=== PATIENT | female | born 1950 | race Caucasian/White ===

== ENCOUNTER 2017-02-16 08:28 | Day surgery (SDC) | payer OTHER ==
[2017-02-16] VITALS (12 sets, daily range): BP systolic 107–134; BP diastolic 54–61; PULSE 72–77; RESP 11–19; Ht 157.5 cm; Wt 81.5 kg
[~2017-02-16] VITALS: Ht 157.5 cm; Wt 81.5 kg
[~2017-02-16 08:28] MED LIST: ASPI-664 PO; CYCLOPENTOLATE 2% 2 ML OPH OPER SCH; DICLOFENAC 0.1% 2.5 ML OPH OPER SCH; GLIP5TAB13 PO; LACTATED RINGER'S 1,000 ML IV SCH; LEVO75TA5 PO; LIDOCAINE 3.5% GEL TUBE OPER SCH; LISI2.5T59 PO; METF1000 PO; MOXIFLOXACIN 0.5% 3 ML OPH OPER SCH; PHENYLephrine 10% 5 ML OPH OPER SCH; PRAV40TA76 PO; SITA100T8 PO; TETRACAINE 0.5% 4 ML OPH OPER SCH; TROPICAMIDE 1% 3ML OPH OPER SCH
--- NOTE | 2017-02-16 08:49 | HPN ---
Date/Time of Note Date/Time of Note DATE: 02/16/17 TIME: 08:49 Interval H&P Admission Note Pt. seen H&P reviewed: No system changes ARTURO NIEVES D.O. Feb 16, 2017 08:49
[2017-02-16] MEDS ORDERED: NA HYALURONATE/CHONDROITIN 0.5 ML SYG LEFT EYE ONE (08:59)
[2017-02-16] MEDS ORDERED: LIDOCAINE 2%/EPI MPF (SDV) 20 ML VIAL INJ ONE (08:59)
[2017-02-16] MEDS ORDERED: HYALURONATE/CHONDROITIN 1ML OPH INJ IO ONE (08:59)
[2017-02-16] MEDS ORDERED: TOBRAMYCIN 0.3% 3.5 GM OPH OINT ONE (09:13)
[2017-02-16] MEDS ORDERED: TRYPAN BLUE 0.5 ML SYG IO ONE (09:13)
[2017-02-16] MEDS ORDERED: NA HYALURONATE/CHONDROITIN 0.5 ML SYG ONE (09:15)
[2017-02-16] MEDS ORDERED: EPINEPHrine 1 MG INJ ONE (09:15)
[2017-02-16] MEDS ORDERED: PROPOFOL 20 ML ONE (09:47)
[2017-02-16] MEDS ORDERED: FENTAnyl 50 MCG/ML VIAL ONE (09:47)
[2017-02-16] MEDS ORDERED: MIDAZOLAM 1 MG/ML 2 ML INJ ONE (09:47)
[2017-02-16] MEDS ORDERED: CEFAZOLIN 1 GM INJ ONE (10:04)
[2017-02-16] MEDS ORDERED: TOBRAMYCIN 0.3% 3.5 GM OPH OINT LEFT EYE ONE (10:14)
[2017-02-16] MEDS ORDERED: CARBACHOL 0.01% 1.5 ML OPH INJ IO ONE (10:28)
[2017-02-16] MEDS ORDERED: DIPHENHYDRAMINE 50 MG INJ IV PRN (10:30)
[2017-02-16] MEDS ORDERED: PROCHLORPERAZINE 10 MG INJ IV PRN (10:30)
[2017-02-16] MEDS ORDERED: ONDANSETRON 4 MG INJ IV PRN (10:30)
[2017-02-16] MEDS ORDERED: hydrALAzine 20 MG INJ IV PRN (10:30)
[2017-02-16] MEDS ORDERED: HYDROmorphONE (0.2 MG/ML) 10ML SYG IV PRN (10:30)
[2017-02-16] MEDS ORDERED: LABETALOL HCL 20MG INJ IV PRN (10:30)
[2017-02-16] MEDS ORDERED: OXYCODONE/ACETAMINOPHEN (5/325) TAB PO PRN (10:30)
[2017-02-16] MEDS ORDERED: FENTAnyl 50 MCG/ML VIAL IV PRN (10:30)
--- NOTE | 2017-02-16 11:03 | SIPON ---
Date/Time of Note Date/Time of Note DATE: 02/16/17 TIME: 11:00 Operative Report Preoperative Diagnosis Senile cataract, Left eye Postoperative Diagnosis Senile cataract, Left eye Operation/Procedure Performed Cataract extraction via phacoemulsification and intraocular lens implantation, Left eye Surgeon: ARTURO NIEVES D.O. Anesthesia Type: MAC Estimated Blood Loss: none Transfusion Required: no Grafts/Implants Alec [id number] D Complications: no ARTURO NIEVES D.O. Feb 16, 2017 11:03
--- NOTE | 2017-02-17 05:56 | OPR ---
DATE OF OPERATION: 02/16/2017 SURGEON: Dr. Melinda Vines. ANESTHESIOLOGIST: Dr. Scott. PREOPERATIVE DIAGNOSIS: Senile cataract, left eye. POSTOPERATIVE DIAGNOSIS: Senile cataract, left eye. OPERATION PLANNED: Cataract extraction with intraocular lens implantation, left eye. OPERATION PERFORMED: Cataract extraction with intraocular lens implantation, left eye. ANESTHESIA: MAC. CONSENT: Patient aware of possibility of complications, such as bleeding, infection, retinal detachment, loss of nucleus, loss of fragments of nucleus, dislocation of lens, loss of lens, loss of vision, loss of eye as an organ. Patient aware of possibility of multiple complications, but patient decided to have surgery done and signed the consent, which can be found in her chart. OPERATIVE PROCEDURE: Patient brought to the operating room in stable condition, placed on the operating table in supine position and her left eye was prepped for cataract surgery in routine sterile technique. Retractor was placed to hold her eyelids and a clear corneal limbal incision was done with a keratome, which was followed by injection of lidocaine with epinephrine, preservative free and Viscoat agent. Air buble was injected, which was followed by injection of Trypan Blue dye. It was followed by irrigation/aspiration with balanced salt solution. Then cystotome and Utrata forceps used to perform anterior capsulorrhexis, which was followed by hydrodissection and hydrodelineation, nucleus moved freely. Then a Nagahara chopper and phaco instruments were inserted and nucleus was divided into multiple pieces, which each of them were emulsified successfully. Cortex was removed as well. Then additional Viscoat agent was injected and an Alec SN6AT 19.5 diopter intraocular lens was implanted in the sulcus. Lens was stable, centered. Then additional Viscoat material was removed and an uninterrupted 8-0 nylon suture was placed on the wound and tobradex ointment was instilled into conjunctival sac. The eyelid was closed and patch was placed on closed eyelids. Patient transferred to recovery room in stable condition. Dictated By: Melinda Vines DO /yang/brenda /Document#: [id number] LINNETTE
== END 2017-02-16 12:30 | disposition home or self-care (01) ==
LOC: SDS 08:28
PROVIDERS: ATTEND Ophthalmology
DX: H25.12 Age-related nuclear cataract, left eye (principal); E03.9 Hypothyroidism, unspecified; I10 Essential (primary) hypertension; E78.5 Hyperlipidemia, unspecified; E11.9 Type 2 diabetes mellitus without complications
CPT/HCPCS: 66984; 82962; J0171; J0690; J2250; J3010; J7120; V2632; Z7512; Z7610

== ENCOUNTER 2018-09-16 08:16 | Inpatient (IN) | payer OTHER ==
--- NOTE | 2018-09-11 00:39 | PREOPHP ---
DATE OF ADMISSION: 09/16/2018 The patient is coming on Sunday, September 16, 2018, for a surgical procedure. HISTORY OF PRESENT ILLNESS: This is a 68-year-old female, 10, para 10, abortions 1 with a se t of twins. The patient had her last period in 1996. She is referred to me by her primary doctor fo r vaginal reconstruction due to that. The patient has difficulties with her bladder, keeping her alma dder inside herself since it comes out of her as a mass. She feels her bladder is outside, and she i s unable to void sometimes to the point that she will need to put her finger inside the vagina to pus h the urine out. Also, with intermittent incontinence. She is also having constipation difficulties and she has been referred to me for a reconstruction. She had a history of a hysterectomy abdominal ly, diabetes, hypertension, hypercholesterolemia, thyroid disease and a mini lap tubal ligation. REVIEW OF SYSTEMS: Negative for cardiovascular except for hypertension. Negative for lung disease. Negative for neurological, urological disease except for the incontinence and urinary retention. She has no other symptoms, problems. She had a history of low thyroid and varicose veins. SOCIAL HISTORY: She has no history of drugs or alcohol. She smokes 1 or 2 cigarettes per week and s he drinks 1 or 2 glasses of alcohol a month. MEDICATIONS: The patient is on: 1. Lisinopril 2. Metformin. 3. Glipizide. 4. Atorvastatin. 5. Aspirin. 6. Levothyroxine. She has been seen by her primary doctor that had given the green light for the surgery. FAMILY HISTORY: Hypertension, diabetes, multiple births. No history of clots or drug addiction. PHYSICAL EXAMINATION: VITAL SIGNS: The blood pressure is 136/70, pulse is 80, respirations 16. She is afebrile. She weig hs 177 and she is 5 feet 4 inches. HEAD AND NECK: Normal. BREASTS: Soft, nontender, no masses. CHEST: Clear. HEART: Normal sinus rhythm. LUNGS: Clear. BACK: Normal. ABDOMEN: Soft, nontender, no masses. GENITALIA: With a cystourethrocele grade IV, and rectocele grade III with an absent uterus from surg jonathan and no adnexal mass palpated. RECTAL: Noncontributory except for the rectocele. EXTREMITIES: Noncontributory except for the rectocele. She was offered an anterior and posterior repair with a sling and a graft. The patient was given the option of no sling versus sling. She was given all the written information and the possibilities of risks and possible complications and benefits and she had decided to take the sling. The patient christensen d been using pessaries that had been giving her a hard time. She is done with that and she would lik e to have a permanent solution. She was placed on estrogen daily suppositories for preparation for s urgery. She agreed for an anterior, posterior repair, a sling and a graft. She has been conscious a bout what I explained to her because of written information was given and she understood everything a nd agreed to have the procedure done with a sling. The patient understands that because she is diabe tic and hypertensive, she could have complications. She was alerted by her primary physician as well and he has given the green light for the procedure and she will have the procedure on the day of her admission with no more questions and she agreed to go ahead with the procedure with full information . Her questions answered, with no more questions and agreed to go ahead with it. Dictated By: HAN LIGHT/BRIANNE Conf#: [id number] DID#: [id number]
[2018-09-14 18:53] VITALS: Ht 162.6 cm; Wt 78.0 kg
[~2018-09-16] VITALS: Ht 162.6 cm; Wt 78.0 kg
[2018-09-16] VITALS (16 sets, daily range): BP systolic 83–119; BP diastolic 39–71; PULSE 63–79; RESP 10–18
[~2018-09-16 08:16] MED LIST changes: -ASPI-664 PO; +ASPI-817 PO; +CEFAZOLIN 1 GM INJ ONE; -CYCLOPENTOLATE 2% 2 ML OPH OPER SCH; -DICLOFENAC 0.1% 2.5 ML OPH OPER SCH; -LACTATED RINGER'S 1,000 ML IV SCH; -LIDOCAINE 3.5% GEL TUBE OPER SCH; -METF1000 PO; +METF100010 PO; +METOCLOPRAMIDE 10 MG INJ ONE; -MOXIFLOXACIN 0.5% 3 ML OPH OPER SCH; -PHENYLephrine 10% 5 ML OPH OPER SCH; +SEVOFLURANE 15 MIN ONE; +SITA100T11 PO; -SITA100T8 PO; -TETRACAINE 0.5% 4 ML OPH OPER SCH; -TROPICAMIDE 1% 3ML OPH OPER SCH
[2018-09-16] MEDS ORDERED: morphine SULFATE/PF (10 MG/10 ML) INJ ONE (09:58)
[2018-09-16] MEDS ORDERED: FENTAnyl 50 MCG/ML VIAL ONE (09:59)
[2018-09-16] MEDS ORDERED: MIDAZOLAM 1 MG/ML 2 ML INJ ONE (09:59)
[2018-09-16] MEDS ORDERED: ONDANSETRON 4 MG INJ ONE (10:02)
[2018-09-16] MEDS ORDERED: PROPOFOL 20 ML ONE (10:05)
[2018-09-16] MEDS ORDERED: LIDOCAINE 2% (SDV) 5 ML INJ ONE (10:06)
[2018-09-16] MEDS ORDERED: ROCURONIUM 50 MG INJ ONE (10:06)
[2018-09-16] MEDS ORDERED: SUCCINYLCHOLINE CHLORIDE 100 MG/5 ML SYG IV ONE (10:06)
--- NOTE | 2018-09-16 10:20 | PREAC ---
Date/Time of Note Date/Time of Note DATE: 09/16/18 TIME: 10:17 Anesthesia Eval and Record Evaluation Time Pre-Procedure Interview DATE: 09/16/18 TIME: 10:17 Age 68 Sex female NPO: 8 hrs Preoperative diagnosis urinary incontinence Planned procedure anterior posterior sling procedure Past Medical History Past Medical History: Includes Cardio: HTN, Dyslipidemia Endo: Diabetes, Hypothyroid Surgery & Anesthesia Issues No known issue Meds Anticoagulation: No Beta Jeffery within 24 hr: No Reason Beta Jeffery not given: Pt. not on B-Jeffery Reported Medications Aspirin* (Aspirin* EC) 81 Mg Tablet.dr, 81 MG PO DAILY, #90 04/13/16 Sitagliptin* (Januvia*) 100 Mg Tablet, 100 MG PO DAILY, #90 04/13/16 Metformin Hcl* (Metformin Hcl*) 1,000 Mg Tablet, 1000 MG PO DAILY, #180 04/13/16 Pravastatin Sodium* (Pravastatin Sodium*) 40 Mg Tablet, 40 MG PO DAILY, #90 04/13/16 Lisinopril* (Lisinopril*) 2.5 Mg Tablet, 2.5 MG PO DAILY, #90 04/13/16 Levothyroxine Sodium* (Levothyroxine Sodium*) 75 Mcg Tablet, 75 MCG PO DAILY, #30 04/13/16 Glipizide* (Glipizide*) 5 Mg Tablet, 5 MG PO BID, #180 04/13/16 Meds reviewed: Yes Allergies Coded Allergies: No Known Allergy (Unverified , 04/14/16) Allergies Reviewed: Yes Labs/Studies Labs Reviewed: Reviewed by anesthesiologist test: Negative Studies: ECG, CXR Pre-procedure Exam Airway: Adequate mouth opening, Adequate thyromental dist Mallampati: Mallampati III Teeth: Abnormal (dentures removed) Lung: Normal Heart: Normal ASA Physical Status ASA physical status: 3 Emergency: None Planned Anesthetic General/MAC: ETT Planned Pain Management Sub-arachniod narcotics, Parenteral pain med, Other neuraxial med Pre-operative Attestations Prior to commencing anesthesia and surgery, the patient was re-evaluated, there was verification of: *The patient's identity *The results of appropriate recent lab work and preoperative vital signs *The above evaluation not changing prior to induction *Anesthetic plan, risk benefits, alternative and complications discussed with patient/family; questions answered; patient/family understands, accepts and wishes to proceed. PRETTY PENNINGTON MD Sep 16, 2018 10:20
[2018-09-16] MEDS ORDERED: BUPIVACAINE 0.5%/EPI (SDV) 30 ML INJ ONE (10:27)
[2018-09-16] MEDS ORDERED: POLYMYXIN/BACITRACIN 1L IRRIG ONE (10:27)
[2018-09-16] MEDS ORDERED: THROMBIN (BOVINE) 5,000 UNIT VIAL TP ONE (10:27)
[2018-09-16] MEDS ORDERED: IPRATROPIUM (NEB) 0.5 MG/2.5 ML AMP HHN PRN (10:30)
[2018-09-16] MEDS ORDERED: KETOROLAC 30 MG INJ IV PRN (10:30)
[2018-09-16] MEDS ORDERED: hydrALAzine 20 MG INJ IV PRN (10:30)
[2018-09-16] MEDS ORDERED: MIDAZOLAM 1 MG/ML 2 ML INJ IV PRN (10:30)
[2018-09-16] MEDS ORDERED: ONDANSETRON 4 MG INJ IV PRN (10:30)
[2018-09-16] MEDS ORDERED: DIPHENHYDRAMINE 50 MG INJ IV PRN (10:30)
[2018-09-16] MEDS ORDERED: LABETALOL HCL 20MG INJ IV PRN (10:30)
[2018-09-16] MEDS ORDERED: LORAZEPAM 2 MG INJ IV PRN (10:30)
[2018-09-16] MEDS ORDERED: LEVALBUTEROL (NEB) 1.25 MG/0.5 ML AMP HHN PRN (10:30)
[2018-09-16] MEDS ORDERED: FENTAnyl 50 MCG/ML VIAL IV PRN ×2 (10:30)
[2018-09-16] MEDS ORDERED: MEPERIDINE 25 MG INJ IV PRN (10:30)
[2018-09-16] MEDS ORDERED: HYDROmorphONE 1 MG/5 ML IV SYRINGE IV PRN ×2 (10:30)
--- NOTE | 2018-09-16 10:51 | HPN ---
Date/Time of Note Date/Time of Note DATE: 09/16/18 TIME: 10:51 Interval H&P Admission Note Pt. seen H&P reviewed: No system changes HAN CAR MD Sep 16, 2018 10:51
[2018-09-16] MEDS ORDERED: POLYMYXIN/BACITRACIN 1L IRRIG IRR ONE (12:26)
[2018-09-16] MEDS ORDERED: ZOLPIDEM 5 MG TAB PO PRN (13:00)
[2018-09-16] MEDS ORDERED: DIPHENHYDRAMINE 50 MG CAP PO PRN (13:00)
[2018-09-16] MEDS ORDERED: ONDANSETRON INJ 6 MG in DEXTROSE 5% 50 ML IVPB PRN (13:00)
[2018-09-16] MEDS ORDERED: HYDROCODONE/APAP (5/325) TAB PO PRN ×2 (13:00)
--- NOTE | 2018-09-16 13:19 | PAC ---
Date/Time of Note Date/Time of Note DATE: 09/16/18 TIME: 13:19 Post-Anesthesia Notes Post-Anesthesia Note Last documented vital signs Vital Signs Date Temp Pulse Resp B/P (MAP) Pulse Ox O2 O2 Flow FiO2 Time Delivery Rate 09/16/18 98.1 13:08 09/16/18 63 18 107/50 98 Room Air 08:43 (69) Activity: WNL Respiratory function: WNL Cardiovascular function: WNL Mental status: Baseline Pain reasonably controlled: Yes Hydration appropriate: Yes Nausea/Vomiting absent: Yes PRETTY PENNINGTON MD Sep 16, 2018 13:19
--- NOTE | 2018-09-16 13:52 | SIPON ---
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
[2018-09-16] MEDS ORDERED: CEFAZOLIN 1 GM/50 ML (PMX) 50 ML IVPB SCH (14:00)
[2018-09-16] MEDS ORDERED: DEXTROSE 50% 50 ML SYRINGE IV PRN ×2 (14:30)
[2018-09-16] MEDS ORDERED: GLUCOSE GEL 15 GRAM TUBE BUCCAL PRN (14:30)
[2018-09-16] MEDS ORDERED: GLUCOSE GEL 15 GRAM TUBE PO PRN ×2 (14:30)
[2018-09-16] MEDS ORDERED: GLUCAGON 1 MG INJ IM PRN (14:30)
[2018-09-16] MEDS: LACTATED RINGER'S 1,000 ML IV SCH ×3 (15:39→23:50)
[2018-09-16] MEDS: KETOROLAC 15 MG INJ IV SCH ×2 (15:41→21:23)
[2018-09-16] MEDS: LINAGLIPTIN 5 MG TABLET PO SCH (15:49)
[2018-09-16] MEDS: METOCLOPRAMIDE 10 MG TAB PO SCH ×2 (17:22→23:50)
--- NOTE | 2018-09-16 17:52 | OPR ---
DATE OF OPERATION: 09/16/2018 PROCEDURE: Anterior and posterior repair, suburethral Obtryx sling, ACell graft and Xenform graft. SURGEON: Han Sandy MD ANESTHESIOLOGIST: Dr. Casarez. BLOOD LOSS: Minimal. PREOPERATIVE DIAGNOSES: 1. Cystourethrocele grade IV, with mixed incontinence. 2. Previous hysterectomy. 3. Rectocele grade II to III with constipation. 4. Diabetes. 5. Hypertension. 6. Obesity. DESCRIPTION OF PROCEDURE: The patient was given general anesthesia and epidural anesthesia, placed i n the lithotomy position. The perineal and vaginal area were prepped and draped and the patient plac ed in the lithotomy position. The weighted speculum was applied and a Lyons catheter was applied. A midline incision was made 2 cm below the urethral meatus after injection of Xylocaine and epinephrin e 2 cm below the urethral meatus all the way up to the cul-de-sac. The large cystocele was exposed a fter the midline incision, and the injection of Xylocaine and epinephrine. The dissection was done c arefully with Metzenbaum and digitally and the bladder was visualized and the plication of the bladde r was done with 2-0 Vicryl suture with the pursestring suture and interrupted sutures. Now, the loca tion for the needle was located 2 cm below the adductor longus tendon parallel to the clitoris. A ma rk was done with a pen and the entrance of the needle was passed through and the needle was retrieved paraurethrally. The sling was attached to the needle and by retrieving the needle, the sleeve of th e arm of the sling was passed through the obturator canal. This was done in both sides. The excess of the arms of the sling were trimmed at the level of the skin. The entrances of the needle were sea led with Dermabond. A piece of ACell graft and Xenform graft was laid down over the mid urethral are a to protect the sling from penetrating the bladder. After we proceeded with this, the graft was fix ed with 1 suture on the side and the sling was adjusted. The other side of the sling was also covere d up with the same ACell and Xenform graft. At this time, 2 pieces of Surgicel were placed all the w ay up to the posterior obturator muscle to control mild venous bleeding. The bleeding was assessed t o be in good position. The vagina was closed now with interrupted sutures vertically with 2-0 Vicryl . At this time, cystoscopy was done with a 30-degree scope to assess the intactness of the bladder a nd ureters and both were assessed to be normal. The procedure was finished here and the posterior co lporrhaphy was started by making a triangular incision a little deeper over the edge of the vaginal m ucosa and injection with Xylocaine and epinephrine was given underneath and opening the vaginal mucos a vertically for about 5 cm up the vaginal canal. The rectocele was exposed with dissection that was done with Metzenbaums and digitally. The rectocele was reduced with interrupted sutures with 2-0 Vi cryl. Trimming of the vaginal wall was done and the sutures were done with interrupted sutures with 2-0 Vicryl. The levator ani were now reached. At this time, the patient is not sexually active and she did not need this approximation. The procedure was finished by removing all the instruments. Th e patient tolerated the procedure well and left the OR awake and stable. Sponge counts and instrumen t counts were correct. Intravenous antibiotics were given for prophylaxis. Blood loss was minimal a nd the urine was clear at the end of the procedure and Xenform gauze was left in the vagina and the F oley catheter was kept for the future 24 hours. Dictated By: HAN LGIHT/BRIANNE Conf#: [id number] DID#: [id number]
[2018-09-16] MEDS: CEFAZOLIN 1 GM/50 ML (PMX) 50 ML IVPB SCH (20:31)
[2018-09-16] MEDS: ATORVASTATIN 10 MG TAB PO SCH (20:31)
[2018-09-16] MEDS: ENOXAPARIN 30 MG/0.3 ML SYG SC SCH (20:33)
[2018-09-16] MEDS: glipiZIDE 5 MG TAB PO SCH (20:38)
[2018-09-16] MEDS ORDERED: ENOXAPARIN 30 MG/0.3 ML SYG SC SCH (21:00)
[2018-09-17 02:00] VITALS: BP 99/54; PULSE 72; RESP 18
[2018-09-17] MEDS: KETOROLAC 15 MG INJ IV SCH ×4 (02:51→20:25)
[2018-09-17] MEDS: CEFAZOLIN 1 GM/50 ML (PMX) 50 ML IVPB SCH ×3 (03:45→20:24)
[2018-09-17] MEDS: METOCLOPRAMIDE 10 MG TAB PO SCH ×3 (06:42→17:55)
[2018-09-17 08:00] VITALS: BP 95/55; PULSE 71; RESP 17
[2018-09-17] MEDS: LINAGLIPTIN 5 MG TABLET PO SCH (08:34)
[2018-09-17] MEDS: glipiZIDE 5 MG TAB PO SCH ×2 (08:34→20:26)
[2018-09-17] MEDS: ENOXAPARIN 30 MG/0.3 ML SYG SC SCH ×2 (08:35→20:36)
[2018-09-17] MEDS ORDERED: LEVOTHYROXINE 75 MCG TAB PO SCH (09:00)
[2018-09-17] MEDS ORDERED: metFORMIN 500 MG TAB PO SCH (09:00)
[2018-09-17] MEDS ORDERED: LISINOPRIL 5 MG TAB PO SCH (09:00)
[2018-09-17 14:48] VITALS: BP 100/53; PULSE 81; RESP 18
[2018-09-17 20:05] VITALS: BP 124/73; PULSE 99; RESP 18
[2018-09-17] MEDS: ATORVASTATIN 10 MG TAB PO SCH (20:26)
--- NOTE | 2018-09-17 20:47 | PD.PPDC ---
FORMULATION TECHNICIAN Discharge Instruction Condition [id number] Patient Condition: Qovah1p Good Diet [id number] Diet: Cfasw5i Special Diet Activity/Restrictions [id number] Activity: Zxtao1e Normal Activity May Shower [id number] Restrictions: Vootq6d No Exercising No Lifting No Driving No Sexual Activity Nothing in the Vagina No Verdon No Tampons, douche Follow-up Follow-up with Physician: 1, Week/Weeks Return to clinic for [id number] BLUE PRINTS TRIMMER Instructions: [id number] Fever greater than 101 Chills Worsening abdominal pain Excessive Vaginal Bleeding More than 2 pads per hour Unable to tolerate diet HAN CAR MD Sep 17, 2018 20:47
--- NOTE | 2018-09-17 20:58 | DS ---
Date/Time of Note Date/Time of Note DATE: 09/17/18 TIME: 20:50 Discharge Summary Admission/Discharge Info Admit Date/Time Sep 16, 2018 at 08:23 Discharge Date/Time September 17, 2018 Discharge Diagnosis Cystourethrocele grade 3 mixed incontinence Rectocele grade 3 constipation Hypertension Diabetes Patient Condition: Good Procedures AMP repair sling and graft Hx of Present Illness 68 years old female with a history of loss of urine with incontinence and dif ficulties urinating to the point where she needed to push herself inside her vagina to be able to empty her bladder at times and constipation with a bulging mass coming out of her vagina hypertension diabetes This patient was referred to me by her primary doctor for resolution of her incapacitating pelvic pressure and bulging that comes out of herself. A&P repair was explained to her along with a sling Hospital Course The patient did very well after surgery. She was stable on her blood pressure and her blood sugar She was ambulatory She was voiding well after the Lyons catheter was removed and the dressing on th e vagina was removed The residual urine was normal after voiding She was able to urinate and have a bowel movement without problems except for some burning in urination The patient was tolerating diet as well She is being sent home on Cipro that she was taking prior to surgery for a mild UTI, this is to continue her medication for prophylaxis Pyridium was added along with ibuprofen for pain. Pain is controlled with Tylenol and ibuprofen alone. No need for narcotics Patient will see me in the office as needed she has been instructed of how to reach me at any time any day. Information was given about what to do and not to do at home and she will see me in a week Home Meds Reported Medications Aspirin* (Aspirin* EC) 81 Mg Tablet.dr, 81 MG PO DAILY, #90 04/13/16 Sitagliptin* (Januvia*) 100 Mg Tablet, 100 MG PO DAILY, #90 04/13/16 Metformin Hcl* (Metformin Hcl*) 1,000 Mg Tablet, 1000 MG PO DAILY, #180 04/13/16 Pravastatin Sodium* (Pravastatin Sodium*) 40 Mg Tablet, 40 MG PO DAILY, #90 04/13/16 Lisinopril* (Lisinopril*) 2.5 Mg Tablet, 2.5 MG PO DAILY, #90 04/13/16 Levothyroxine Sodium* (Levothyroxine Sodium*) 75 Mcg Tablet, 75 MCG PO DAILY, # 30 04/13/16 Glipizide* (Glipizide*) 5 Mg Tablet, 5 MG PO BID, #180 04/13/16 Follow-up Plan 1 week Primary Care Provider Not On Staff Doctor Time spent on discharge: > 30 minutes Pending Labs Laboratory Tests Test 09/17/18 05:15 09/17/18 08:01 09/17/18 20:33 White Blood Count 14.1 10^3/ul (4.8-10.8) Red Blood Count 3.42 10^6/ul (4.20-5.40) Hemoglobin 10.3 g/dl (12.0-16.0) Hematocrit 32.3 % (37.0-47.0) Mean Corpuscular 94.4 fl (82.0-101.0) Volume Mean Corpuscular 30.1 pg (29.0-33.0) Hemoglobin Mean Corpuscular 31.9 Hemoglobin Concent g/dl (32.0-37.0) Red Cell 13.0 % (11.5-14.5) Distribution Width Platelet Count 236 10^3/UL (140-415) Mean Platelet 11.3 fl (7.4-10.4) Volume Immature 0.400 Granulocytes % % (0.001-0.429) Neutrophils % 83.2 % (39.0-77.0) Lymphocytes % 11.4 % (15.0-51.0) Monocytes % 4.9 % (0.0-11.0) Eosinophils % 0.0 % (0.0-7.0) Basophils % 0.1 % (0.0-2.0) Nucleated Red Blood 0.0 Cells % /100WBC (0.0-0.0) Immature 0.050 Granulocytes # 10^3/ul (0.0-0.031) Neutrophils # 11.7 10^3/ul (1.6-7.5) Lymphocytes # 1.6 10^3/ul (0.8-2.9) Monocytes # 0.7 10^3/ul (0.3-0.9) Eosinophils # 0.0 10^3/ul (0.0-0.5) Basophils # 0.0 10^3/ul (0.0-0.1) Nucleated Red Blood 0.0 Cells # 10^3/ul (0.0-0.0) Sodium Level 140 mmol/L (135-144) Potassium Level 4.7 mmol/L (3.5-5.1) Chloride Level 108 mmol/L (97-110) Carbon Dioxide 26 mmol/L (21-31) Level Anion Gap 6 (5-13) Blood Urea Nitrogen 11 mg/dl (7-20) Creatinine 0.47 mg/dl (0.44-1.00) Bedside Glucose 75 mg/dL (70-220) 85 mg/dL (70-220) HAN CAR MD Sep 17, 2018 20:58
== END 2018-09-17 21:55 | disposition home or self-care (01) | DRG 748 ==
LOC: 2NE 08:23 → EDSTATUS 10:30 → PP2 14:53
PROVIDERS: ADMIT Obstetrics & Gynecology; ATTEND Obstetrics & Gynecology
PROC: 0JUC0JZ Supplement of Pelvic Region Subcutaneous Tissue and Fascia with Synthetic Substitute, Open Approach (ICD-10-PCS; 2018-09-16)
PROC: 0JQC0ZZ Repair Pelvic Region Subcutaneous Tissue and Fascia, Open Approach (ICD-10-PCS; 2018-09-16)
PROC: 0TSD0ZZ Reposition Urethra, Open Approach (ICD-10-PCS; principal; 2018-09-16 10:30)
DX: N81.10 Cystocele, unspecified (principal); N81.6 Rectocele; N39.46 Mixed incontinence; K59.00 Constipation, unspecified; I10 Essential (primary) hypertension; E03.9 Hypothyroidism, unspecified; E11.9 Type 2 diabetes mellitus without complications; E66.9 Obesity, unspecified; E78.00 Pure hypercholesterolemia, unspecified; Z98.51 Tubal ligation status; Z79.84 Long term (current) use of oral hypoglycemic drugs; Z79.82 Long term (current) use of aspirin; Z90.710 Acquired absence of both cervix and uterus
CPT/HCPCS: 80051; 82565; 82962; 84520; 85025; 87086; C1771; C1781; J0690; J1650; J1885; J2250; J2274; J2405; J2765; J3010; J7120; Q4166